=== PATIENT | male | born 1995 | race Two or more races ===

== ENCOUNTER 2021-02-23 10:48 | Emergency (ER) | payer OTHER ==
[~2021-02-23] VITALS: Ht 167.6 cm; Wt 108.9 kg
== END 2021-02-23 14:51 | disposition home or self-care (01) ==
LOC: ER 10:48
DX: R07.89 Other chest pain (principal); S50.312D Abrasion of left elbow, subsequent encounter; V29.88XD Motorcycle rider (driver) (passenger) injured in other specified transport accidents, subsequent encounter